=== PATIENT | male | born 1955 | race Caucasian/White ===

== ENCOUNTER → 2020-05-19 | Outpatient (CLI) | payer OTHER ==
[~2020-05-19] MED LIST: ASPIR-LOW81 MG PO; ATORVASTATIN CA20 MG PO; BRILINTA 90 MG90 MG PO; FISH OIL 1,2001 EACH PO; FOLIC ACID 1 MG1 MG PO; LISINOPRIL5 MG PO; LOPRESSOR 25 MG25 MG PO; NITROGLYCERIN0.4 MG SL; NORVASC10 MG PO; PRINIVIL10 MG PO; Voltaren Gel 1 % TOP
== END ==
LOC: HEART 5 07:31
DX: I25.10 Atherosclerotic heart disease of native coronary artery without angina pectoris (principal); I50.1 Left ventricular failure, unspecified
CPT/HCPCS: 78452; A9502; J2785